=== PATIENT | female | born 1980 | race Caucasian/White ===

== ENCOUNTER 2021-09-17 10:25 | Outpatient (CLI) | payer BC, SELFPAY ==
[2021-09-17 18:49] LABS: Hematocrit 40.9 % (37.0-47.0); Hemoglobin 12.8 g/dL (12.0-15.0); Mean Corpuscular HGB Conc 31.3 g/dl (32-36); Mean Corpuscular Hemoglobin 28.8 pg (26-34); Mean Corpuscular Volume 92.1 fl (80-100); Mean Platelet Volume 11.2 fl (7.4-10.4); Platelet Count Result 310 k/mm3 (150-375); Red Blood Count 4.44 M/mm3 (4.2-5.4); Red Cell Distribution Width 13.4 % (11.5-14.5); White Blood Count 8.5 K/mm3 (4.5-10.0)
[2021-09-17 18:59] LABS: Alanine Aminotransferase 16 U/L (6-35); Albumin Level 4.6 g/dL (3.5-5.1); Alkaline Phosphatase 61 U/L (38-126); Anion Gap 5 mmol/L (8-16); Aspartate Amino Transferase 42 U/L (14-36); Bilirubin,Total 0.4 mg/dL (0.2-1.3); Blood Urea Nitrogen 13 mg/dL (7-17); Carbon Dioxide 28 mmol/L (22-30); Chloride 108 mmol/L (98-107); Cholesterol 189 mg/dL (0-200); Estimated Glomerular Filt Rate > 60; Glucose 91 mg/dL (65-110); HDL Direct 68 mg/dL; Sodium 141 mmol/L (137-145); Triglycerides 62 mg/dL (<150)
[2021-09-17 19:10] LABS: LDL Cholesterol Direct 83 mg/dL
[2021-09-17 19:33] LABS: Vitamin D 25 Hydroxy 45.1 ng/mL
== END 2021-09-17 10:26 | disposition home or self-care (01) ==
LOC: ANHGOSHLAB 10:27
PROVIDERS: PCP Family Medicine; Visit Provider Family Medicine
DX: R53.83 Other fatigue (principal); Z13.220 Encounter for screening for lipoid disorders; Z13.29 Encounter for screening for other suspected endocrine disorder; Z13.228 Encounter for screening for other metabolic disorders; Z13.0 Encounter for screening for diseases of the blood and blood-forming organs and certain disorders involving the immune mechanism
CPT/HCPCS: 36415; 80053; 80061; 82306; 84443; 85027

== ENCOUNTER → 2022-04-20 11:10 | Outpatient (CLI) | payer BC, SELFPAY ==
--- NOTE | ~2022-04-20 | MM_ITS ---
EXAMINATION: MM scrn betty implant BI w regan HISTORY: Screening mammogram TECHNIQUE: Craniocaudal and mediolateral oblique 3-D tomosynthesis images with implant displacement a nd synthetic 2-D images were generated. Craniocaudal and mediolateral oblique views of the breasts wi thout implant displacement were obtained using full field digital mammography. CAD analysis was submi tted and interpreted. COMPARISON: No prior mammogram is available for comparison at this institution. BREAST PARENCHYMAL COMPOSITION: There are scattered areas of fibroglandular density. FINDINGS: Status post bilateral augmentation mammoplasty. There is no evidence of suspicious mass, ca lcification, or architectural distortion to suggest malignancy in either breast. There has been no zaidi spicious interval change. IMPRESSION: 1. No mammographic evidence of malignancy. 2. Recommend routine screening mammography in one year. BI-RADS Category 1: Negative Reviewed, dictated and finalized at location A. TY SCIENTIST
== END ==
PROVIDERS: PCP Family Medicine; Visit Provider Obstetrics & Gynecology
DX: Z12.31 Encounter for screening mammogram for malignant neoplasm of breast (principal)
CPT/HCPCS: 77063; 77067

== ENCOUNTER → 2023-05-03 12:22 | Outpatient (CLI) | payer BC, SELFPAY ==
--- NOTE | ~2023-05-03 | MM_ITS ---
EXAMINATION: MM scrn betty implant BI w regan HISTORY: Screening mammogram TECHNIQUE: Craniocaudal and mediolateral oblique 3-D tomosynthesis images with implant displacement a nd synthetic 2-D images were generated. Craniocaudal and mediolateral oblique views of the breasts wi thout implant displacement were obtained using full field digital mammography. CAD analysis was submi tted and interpreted. COMPARISON: 04/20/2022 bilateral implant screening mammogram BREAST PARENCHYMAL COMPOSITION: The breasts are heterogeneously dense, which may obscure small masses . FINDINGS: Questionable 1 cm mass in the outer mid right breast on MLO view (MLO Tomosynthesis image 9 /40), not evident on CC view. Focal asymmetry in the medial right breast on craniocaudal view. Diagnostic right mammogram, with ultrasound if required. Otherwise there is no evidence of suspicious mass, calcification, or architectural distortion to sugg est malignancy in either breast. There has been no other suspicious interval change. IMPRESSION: 1. Questionable lateral mid right breast mass on MLO view, not evident on CC projection. Focal asymme try in the medial right breast on craniocaudal view. 2. Diagnostic right mammogram is recommended, with ultrasound if required BI-RADS Category 0: Incomplete: Needs additional imaging evaluation. Reviewed, dictated and finalized at location A. UNT INSTALLATION SPECIALIST IMPRESSION: 1. Questionable lateral mid right breast mass on MLO view, not evident on CC pr ojection. Focal asymmetry in the medial right breast on craniocaudal view. 2. Diagnostic right mammogram is recommended, with ultrasound if required BI-RADS Category 0: Incomplete: Needs additional imaging evaluation.
== END ==
PROVIDERS: PCP Obstetrics & Gynecology; Visit Provider Obstetrics & Gynecology
DX: Z12.31 Encounter for screening mammogram for malignant neoplasm of breast (principal); R92.8 Other abnormal and inconclusive findings on diagnostic imaging of breast
CPT/HCPCS: 77063; 77067

== ENCOUNTER 2023-05-13 08:42 | Outpatient (CLI) | payer BC, SELFPAY ==
--- NOTE | ~2023-05-13 | MM_ITS ---
Patient name: Evelina Gamboa Date of : 1980 EXAMINATION: DIAGNOSTIC BREAST YANE - GERALD HISTORY: Questionable lateral mid right breast mass on MLO view, not evident on CC projection. Focal asymmetry in the medial right breast on craniocaudal view. TECHNIQUE: Additional 3-D tomosynthesis images of the right breast were performed and synthetic 2-D i mages were generated. CAD analysis was submitted and interpreted. High resolution complete right dre st ultrasound examination including all 4 quadrants and subareolar area was performed. COMPARISON: 05/03/2023 bilateral implant screening mammogram FINDINGS: MAMMOGRAPHIC FINDINGS: No suspicious focal mass or architectural distortion or any malignant calcification, skin thickening or retraction of the right breast is detected. Right breast implant. ULTRASOUND: 1:00 near nipple: Oval circumscribed sonolucency measuring 6.8 x 7.1 x 4.3 mm, with through transmiss ion posterior enhancement, consistent with simple cyst 2:00 5 cm from nipple: 3.2 x 3.4 x 3.2 mm simple cyst, with through transmission, backwall enhancemen t. No suspicious mass or shadowing is detected. IMPRESSION: 1. Benign cysts at 1:00 and 2:00, right breast 2. Routine annual mammographic screening is recommended. BI-RADS Category 2: Benign finding(s). Reviewed, dictated and finalized at location A.
== END 2023-05-13 08:43 | disposition home or self-care (01) ==
LOC: CHSIMG 08:44
PROVIDERS: PCP Obstetrics & Gynecology; Visit Provider Obstetrics & Gynecology
DX: R92.8 Other abnormal and inconclusive findings on diagnostic imaging of breast (principal)
CPT/HCPCS: 76641; 77061; 77065; G0279

== ENCOUNTER 2024-05-03 10:28 | Outpatient (CLI) | payer BC, SELFPAY ==
--- NOTE | ~2024-05-03 | MM_ITS ---
EXAMINATION: MM scrn betty implant BI w regan HISTORY: Screening mammogram TECHNIQUE: Craniocaudal and mediolateral oblique 3-D tomosynthesis images with implant displacement a nd synthetic 2-D images were generated. Craniocaudal and mediolateral oblique views of the breasts wi thout implant displacement were obtained using full field digital mammography. CAD analysis was submi tted and interpreted. COMPARISON: 05/13/2023, 05/03/2023, 04/20/2022 BREAST PARENCHYMAL COMPOSITION: There are scattered areas of fibroglandular density. FINDINGS: There is no evidence of suspicious mass, calcification, or architectural distortion to sugg est malignancy in either breast. There has been no suspicious interval change. IMPRESSION: No mammographic evidence of malignancy. Recommend routine screening mammography in one year. BI-RADS Category 1: Negative Reviewed, dictated and finalized at [facility]. [employer]
== END 2024-05-03 10:29 | disposition home or self-care (01) ==
LOC: MICIMG 10:28
PROVIDERS: PCP Obstetrics & Gynecology; Visit Provider Obstetrics & Gynecology
DX: Z12.31 Encounter for screening mammogram for malignant neoplasm of breast (principal)
CPT/HCPCS: 77063; 77067